=== PATIENT | male | born 1995 | race Caucasian/White ===

== ENCOUNTER 2020-06-13 08:16 | Outpatient (RCR) | payer OTHER | END 2020-09-03 | disposition home or self-care (01) | LOC: WSOH | DX: S20.211D Contusion of right front wall of thorax, subsequent encounter (principal); F17.210 Nicotine dependence, cigarettes, uncomplicated; Z98.1 Arthrodesis status; Y99.0 Civilian activity done for income or pay ==

== ENCOUNTER 2020-07-05 07:35 | Outpatient (RCR) | payer OTHER | END 2020-07-25 09:47 | disposition home or self-care (01) | LOC: WSC 07:35 | DX: S20.219A Contusion of unspecified front wall of thorax, initial encounter (principal); S20.229A Contusion of unspecified back wall of thorax, initial encounter ==

== ENCOUNTER 2023-09-29 05:28 | Day surgery (SDC) | payer OTHER ==
[~2023-09-29] VITALS: Ht 193 cm; Wt 103.6 kg
[2023-09-29] VITALS (8 sets, daily range): BP systolic 96–115; BP diastolic 50–72; PULSE 64–87; TEMP 97–97.9
[2023-09-29] MEDS ORDERED: PRILOTC (06:06)
[2023-09-29] MEDS ORDERED: TYLENOL 500MG500 MG PO (06:07)
[2023-09-29 06:49] LABS: HEMATOCRIT 40.6 % (42.0-52.0); HEMOGLOBIN 14.3 g/dl (13.5-18.0)
[2023-09-29] MEDS ORDERED: NORCO 325 MG-51 TAB PO (07:18)
[2023-09-29] MEDS ORDERED: COLACE 100100 MG/CAP PO (07:18)
--- NOTE | 2023-09-29 09:48 | NUR ---
PT TO ROOM 322 PER BED WITH REPORT FROM [facility] @[id number]. PT IS A/O X4, LUNGS CTA BOWEL SOUNDS PRESENT. ABDOMINAL INCISIONS X4 CDI NAIDA. IV TO RIFHT HAND. PROVIDED COFFEE PER PT REQUEST.
--- NOTE | 2023-09-29 13:29 | NUR ---
DISCHARGE INSTSRUCTIONS REVIEWED WITH PT. PT VERBALIZED UNDERSTANDING. 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 PT LEFT UNIT AMBULATORY.
== END 2023-09-29 13:30 | disposition home or self-care (01) ==
LOC: SDCO 05:28 → SURG 09:30 → SDCO 10:30 → SURG 13:30
PROVIDERS: Nurse Anesthetist, Certified Registered
DX: Q64.4 Malformation of urachus (principal); F17.210 Nicotine dependence, cigarettes, uncomplicated
CPT/HCPCS: OP; A4314; C1769; J0330; J0690; J1100; J1170; J2405; J2704; J3010; J7120

== ENCOUNTER → 2023-10-05 | Outpatient (CLI) | payer OTHER ==
[~2023-10-05] MED LIST: COLACE 100100 MG/CAP PO; NORCO 325 MG-51 TAB PO; PRILOTC; TYLENOL 500MG500 MG PO
== END ==
LOC: COL.RAD 07:31
DX: Q64.4 Malformation of urachus (principal)
CPT/HCPCS: Q9967